=== PATIENT | female | born 1960 | race Caucasian/White ===

== ENCOUNTER → 2020-02-07 | Outpatient (CLI) | payer OTHER ==
[~2020-02-07] MED LIST: ASPIRIN 81M81 MG/TA2 PO; GLUCOPHAGE500 MG/TAB PO; HCTZ 25MG TAB25 MG PO; LIPITOR 40MG TA40 MG PO; MASON NATURAL2000 IU PO; NORVASC 10MG10 MG PO; PRINIVIL40 MG PO; ZYRTEC 10MG10 MG PO
== END ==
LOC: COL.RAD 01-25 08:15
DX: N28.89 Other specified disorders of kidney and ureter (principal); K76.0 Fatty (change of) liver, not elsewhere classified
CPT/HCPCS: A9585

== ENCOUNTER 2020-03-27 08:59 | Inpatient (IN) | payer OTHER ==
[~2020-03-27] VITALS: Ht 152.4 cm; Wt 62.0 kg
[2020-04-18] VITALS (11 sets, daily range): BP systolic 103–161; BP diastolic 56–78; PULSE 65–97; TEMP 97.9–98.7
[2020-04-18] MEDS ORDERED: FLEXERIL 1010 MG/TAB PO (06:13)
[2020-04-18] MEDS ORDERED: TRULICITY1.5 MG/0.5 SQ (06:13)
--- NOTE | 2020-04-18 06:21 | NUR ---
TO RM AT 0530- CALL LIGHT IN REACH ALERT ORIENTED X3, VERBALIZED UNDERSTANDING AND SIGNED CONSENT.
--- NOTE | 2020-04-18 11:30 | NUR ---
Patient to room via cart. Transferred with staff assist. She drowsy but oriented. Denies nausea. Stated she is very cold. Scant drainage to LARRY drain at this time. Roberts secured to leg, urine yellow and clear. Oriented patient to room. No other changes at this time. Explained she is on bedrest until tomorrow. No other changes at this time. Call light within reach.
--- NOTE | 2020-04-18 18:00 | NUR ---
Patient has been doing good this afternoon. She is tolerating clear liquids without nausea. Minimal complaints of pain. No complaints of nausea. Encouraged her to do deep breathing exercises. She stated her pain is better. Urine output was a little low after surgery but is starting to nut picker now. Minimal output from LARRY drain. No other changes at this time. Call light within reach. Reminded patient again that she is on bedrest until tomorrow.
--- NOTE | 2020-04-18 20:00 | NUR ---
Resting in bed. Assessment complete. Lungs clear. Heart sounds normal. Bowels active x4. Pulses present throughout. No edema noted. IV left wrist without complications. Reports 5/10 pain at this time-managable. Lap sites to ABD CDI- LARRY drain emptied. Output charted. Site CDI at this time. Roberts to dependent drainage. Clear yellow urine. Denies needs at this time. Call light in reach.
--- NOTE | 2020-04-18 23:59 | NUR ---
Reported 6/10 ABD pain. Provided with PRN tramadol at this time. Call light in reach.
[2020-04-19] VITALS (7 sets, daily range): BP systolic 100–141; BP diastolic 49–67; PULSE 85–98; TEMP 97.7–98.9
--- NOTE | 2020-04-19 01:52 | NUR ---
Resting in bed asleep. Call light in reach.
--- NOTE | 2020-04-19 06:12 | NUR ---
Patient required tramadol for pain control throoughout night. Otherwise uneventful night. Resting in bed this AM. Call light in reach.
--- NOTE | 2020-04-19 06:46 | NUR ---
Report given to DMITRI Shell
[2020-04-19 07:51] LABS: HEMATOCRIT 35.1 % (37.0-47.0)
--- NOTE | 2020-04-19 08:00 | NUR ---
Patient in bed resting. Alert and oriented x 3. Assessment complete. Denies pain at this time. Lap x 6 with edges well approximated. LARRY to RLQ with serosanguinious drainage present. Fluids infusing per orders. Roberts to DD with clear yellow urine present. SCDs to BLE. Denies further needs at this time.
[2020-04-19 08:03] LABS: CREATININE, serum 0.72 (0.52-1.25); POTASSIUM 3.8 mmol/L (3.4-5.0)
--- NOTE | 2020-04-19 09:25 | NUR ---
Roberts discontinued per orders, pericare provided. Patient tolerated well. x1 assist to recliner. Pain increased to 6/10 medications given per orders. Denies furhter needs at this time.
--- NOTE | 2020-04-19 09:33 | NUR ---
Initial visit; Patient thanked Desktop Publishing Specialist for looking in on her, offering God's blessings and keeping her in Desktop Publishing Specialist's prayers.
--- NOTE | 2020-04-19 13:00 | NUR ---
Patient ambulated >50 feet with steady gait. Recheck O2 once back in room at 88 placed patient back on 2L O2, saturations increased to 93% at this time. Educated patient on cough and deep breath and increasing activity.
--- NOTE | 2020-04-19 18:31 | NUR ---
Patient has done well throughout the day. Denies pain at this time. Patient has ambulated in halls with staff. Remained on 2L O2 throughout the day, decreases to 82% without oxygen, encouraged IS and CDB. Denies pain throughout the day, educated patient on use of pain medication. LARRY discontinued per orders. Denies needs at this time. Will report off to night club manager.
[2020-04-20] VITALS: BP 126/64; PULSE 93; TEMP 99
[2020-04-20 04:00] VITALS: BP 135/66; PULSE 104; TEMP 98.8
--- NOTE | 2020-04-20 07:15 | NUR ---
CIGARETTE FILTER INSPECTOR REPORTED PATIENT REQUIRING 02 AT 2L TO KEEP SATS ABOVE 90%. ASSISTED PATIENT TO BEDSIDE CHAIR, ENCOURAGED I.S. AND DEEP BREATHING. NOTED PATIENT TAKING SHALLOW BREATHS DUE TO ABD TENDERNESS. A&P LUNG BASES NOTED SOME FC WITH UPPER LOBES CLEAR. NURSING ENCOURAGED PATIENT TO COUGH & DEEP BREATH. 02 DECREASED TO 1L PER NC WITH SATS AT 90-91% UP IN CHAIR. WILL WORK ON WEANING OFF 02 THIS AM. PATIENT DENIES SOA OR CHEST PAIN. ABD IS DISTENDED, SOFT AND WITH POSITIVE BOWL SOUNDS. NO C/O N/V. LEFT WRIST IV TO INT. AM MEDS GIVEN. HEAD TO TOE ASSESSMENT COMPLETE. CALL LIGHT IN REACH.
[2020-04-20 08:27] VITALS: BP 120/55; PULSE 101; TEMP 98
--- NOTE | 2020-04-20 09:56 | NUR ---
Follow-up visit; Patient states she is doing better today and thanked Correspondence Representative for looking in on her again this morning.
--- NOTE | 2020-04-20 11:34 | NUR ---
Business Continuity Director met with the patient to complete intake. The patient lives in [place] with her Demetris. The patient denies DME use and is independent. The patient's PCP is Dr. Lorena Quach and receives [facility] on [address]. The patient does not have advanced directives in the EMR and was not interested in DPOA-HC form. The patient has no concerns about returning home at discharge with Demetris providing transportation. There are no additional needs.
[2020-04-20 12:00] VITALS: BP 128/67; PULSE 93; TEMP 97.8
--- NOTE | 2020-04-20 14:00 | NUR ---
PATIENT DISCHARGING HOME VIA WC TO PERSONAL VEHICLE WHERE IS WAITING. GAVE DISCHARGE INSTRUCTIONS, F/U APT, AND ANSWERED ALL QUESTIONS/CONCERNS. DC'D LEFT WRIST IV, COVERED SITE WITH GAUZE & TAPE. PATIENT DRESSED AND PERSONAL BELONGINGS PACKED. PATIENT ESCORTED OUT
== END 2020-04-20 14:00 | disposition home or self-care (01) | DRG 661 ==
LOC: INPTSU 04-18 05:31 → SURG 04-18 07:30 → JCC 04-18 11:15
PROVIDERS: ADMIT Urology
PROC: 0TD Urinary System, Extraction (ICD-10-PCS; 2020-04-18)
PROC: 0TB14ZZ Excision of Left Kidney, Percutaneous Endoscopic Approach (ICD-10-PCS; principal; 2020-04-18 07:30)
DX: N28.1 Cyst of kidney, acquired (principal); N28.89 Other specified disorders of kidney and ureter; Z20.828 Contact with and (suspected) exposure to other viral communicable diseases; E11.9 Type 2 diabetes mellitus without complications
CPT/HCPCS: A4314; A9284; J0690; J1100; J1170; J1815; J1885; J2250; J2270; J2370; J2405; J2704; J7120